=== PATIENT | male | born 1975 | race Caucasian/White ===

== ENCOUNTER 2023-06-24 12:18 | Outpatient (CLI) | payer BC, SELFPAY ==
[2023-06-24 13:39] LABS: INR 1.79 (0.8-1.2)
== END 2023-06-24 12:19 | disposition home or self-care (01) ==
LOC: LAB 12:33
PROVIDERS: Visit Provider Thoracic Surgery (Cardiothoracic Vascular Surgery)
DX: Z79.01 Long term (current) use of anticoagulants (principal); Z95.3 Presence of xenogenic heart valve
CPT/HCPCS: 36415; 85610

== ENCOUNTER 2023-06-27 12:15 | Outpatient (CLI) | payer BC, SELFPAY ==
[2023-06-27 12:40] LABS: INR 1.57 (0.8-1.2)
== END 2023-06-27 12:16 | disposition home or self-care (01) ==
LOC: LAB 12:17
PROVIDERS: Visit Provider Thoracic Surgery (Cardiothoracic Vascular Surgery)
DX: Z79.01 Long term (current) use of anticoagulants (principal)
CPT/HCPCS: 36415; 85610

== ENCOUNTER 2023-07-01 12:02 | Outpatient (RCR) | payer BC, SELFPAY ==
[2023-07-01 13:08] LABS: INR 1.81 (0.8-1.2)
== END 2023-07-19 23:59 | disposition home or self-care (01) ==
LOC: LAB 12:02
PROVIDERS: PCP Nurse Practitioner Family; Visit Provider Thoracic Surgery (Cardiothoracic Vascular Surgery)
DX: Z79.01 Long term (current) use of anticoagulants (principal)
CPT/HCPCS: 36415; 85610

== ENCOUNTER 2023-07-09 15:09 | Outpatient (CLI) | payer BC, SELFPAY ==
[2023-07-09 16:52] LABS: INR 1.97 (0.8-1.2)
== END 2023-07-09 15:10 | disposition home or self-care (01) ==
LOC: LAB 15:11
PROVIDERS: PCP Nurse Practitioner Family; Visit Provider Thoracic Surgery (Cardiothoracic Vascular Surgery)
DX: Z95.3 Presence of xenogenic heart valve (principal)
CPT/HCPCS: 36415; 85610

== ENCOUNTER 2023-08-01 11:15 | Outpatient (CLI) | payer SELFPAY ==
[2023-08-01 11:50] LABS: INR 1.58 (0.8-1.2)
== END 2023-08-01 11:16 | disposition home or self-care (01) ==
PROVIDERS: PCP Nurse Practitioner Family; Visit Provider Thoracic Surgery (Cardiothoracic Vascular Surgery)
DX: Z79.01 Long term (current) use of anticoagulants (principal)
CPT/HCPCS: 36415; 85610

== ENCOUNTER 2023-08-08 15:36 | Outpatient (CLI) | payer SELFPAY ==
[2023-08-08 16:46] LABS: INR 1.47 (0.8-1.2)
== END 2023-08-08 15:37 | disposition home or self-care (01) ==
LOC: RAD 15:38
PROVIDERS: PCP Nurse Practitioner Family; Visit Provider Thoracic Surgery (Cardiothoracic Vascular Surgery)
DX: Z79.01 Long term (current) use of anticoagulants (principal)
CPT/HCPCS: 85610

== ENCOUNTER 2023-08-27 13:43 | Outpatient (CLI) | payer SELFPAY | END 2023-08-27 13:44 | disposition home or self-care (01) | LOC: LAB 13:44 | PROVIDERS: PCP Nurse Practitioner Family; Visit Provider Thoracic Surgery (Cardiothoracic Vascular Surgery) | DX: Z79.01 Long term (current) use of anticoagulants (principal) | CPT/HCPCS: 36415; 85610 ==

== ENCOUNTER 2023-09-06 13:08 | Outpatient (RCR) | payer SELFPAY ==
[2023-08-19 13:32] LABS: INR 1.89 (0.8-1.2)
[2023-09-06 13:31] LABS: INR 1.81 (0.8-1.2)
== END 2023-09-18 23:59 | disposition home or self-care (01) ==
LOC: LAB 13:08
PROVIDERS: PCP Nurse Practitioner Family; Visit Provider Thoracic Surgery (Cardiothoracic Vascular Surgery)
DX: Z79.01 Long term (current) use of anticoagulants (principal); Z95.3 Presence of xenogenic heart valve
CPT/HCPCS: 36415; 85610